=== PATIENT | male | born 1995 | race American Indian/Alaskan Native ===

== ENCOUNTER 2016-11-13 16:01 | Emergency (ER) | payer SELFPAY ==
[2016-11-13 16:29] VITALS: BP 103/73
== END 2016-11-13 22:02 | disposition left against medical advice (07) ==
LOC: ED 16:01
DX: M54.2 Cervicalgia (principal); M79.601 Pain in right arm; R07.9 Chest pain, unspecified; R20.2 Paresthesia of skin; M79.604 Pain in right leg; Z53.21 Procedure and treatment not carried out due to patient leaving prior to being seen by health care provider
CPT/HCPCS: 93005; 93010

== ENCOUNTER 2018-07-19 18:01 | Emergency (ER) | payer SELFPAY ==
[2018-07-19 18:26] VITALS: BP 118/66
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
[2018-07-19] MEDS ORDERED: LET TOPICAL TP ONE ×2 (21:25→21:27)
[2018-07-19] MEDS ORDERED: NACL 0.9% IR ONE (21:25)
[2018-07-19] MEDS ORDERED: MOTRIN PO ONE (21:25)
[2018-07-19] MEDS ORDERED: BOOSTRIX IM ONE (21:27)
== END 2018-07-20 00:04 | disposition home or self-care (01) ==
LOC: ED 18:01
DX: S01.81XA Laceration without foreign body of other part of head, initial encounter (principal); F17.200 Nicotine dependence, unspecified, uncomplicated; Z48.01 Encounter for change or removal of surgical wound dressing; X99.8XXA Assault by other sharp object, initial encounter; Y93.89 Activity, other specified; Y99.8 Other external cause status; Y92.89 Other specified places as the place of occurrence of the external cause
CPT/HCPCS: 90471; 90715; 99282